=== PATIENT | female | born 1945 | race Two or more races ===

== ENCOUNTER 2019-08-03 16:48 | Emergency (ER) | payer OTHER ==
[~2019-08-03] VITALS: Ht 149.9 cm; Wt 61.2 kg
[2019-08-03] MEDS ORDERED: SYNTHROID88 MCG (16:54)
[2019-08-03] MEDS ORDERED: VALSARTAN160 MG (16:54)
== END 2019-08-03 21:02 | disposition home or self-care (01) ==
LOC: ER 16:48
DX: K57.30 Diverticulosis of large intestine without perforation or abscess without bleeding (principal); K58.8 Other irritable bowel syndrome

== ENCOUNTER 2021-06-05 09:55 | Emergency (ER) | payer OTHER ==
[~2021-06-05] VITALS: Ht 149.9 cm; Wt 61.2 kg
[~2021-06-05 09:55] MED LIST: SYNTHROID88 MCG; VALSARTAN160 MG
[2021-06-05] MEDS ORDERED: AVAPRO150 MG (11:02)
[2021-06-05] MEDS ORDERED: DICY20TA (11:02)
[2021-06-05] MEDS ORDERED: LEVSIN0.125 MG (11:02)
[2021-06-05] MEDS ORDERED: AMBIEN10 MG (11:03)
[2021-06-05] MEDS ORDERED: ONDANSETRON ODT4 MG PO (16:54)
== END 2021-06-05 17:49 | disposition home or self-care (01) ==
LOC: ER 09:55
DX: K57.30 Diverticulosis of large intestine without perforation or abscess without bleeding (principal); R10.32 Left lower quadrant pain